=== PATIENT | male | born 1995 | race Caucasian/White ===

== ENCOUNTER 2018-11-21 01:00 | Emergency (ER) | payer OTHER ==
[2018-11-21 01:06] VITALS: BP 113/51
--- NOTE | 2018-11-21 01:17 | EDPHY ---
H & P Stated Complaint: Lac to L pointer finger on lump roller blade Time Seen by Provider: 11/21/18 01:10 HPI/ROS: Chief Complaint: Finger laceration HPI: 23-year-old male sustained a laceration to the tip of his left index finger when he was cleaning his lump roller. The blade slipped and he lacerated approximately 4 hr ago. Has continued to bleed. No other injuries. No other medical problems. He is up-to-date in his immunizations. ROS: 10 systems were reviewed and were negative except those elements noted in the HPI. PMH: Denies Social History: [No] smoking Family History: [non-contributory] Physical Exam: General: Awake alert, no acute distress Left hand: Patient has a 1 cm laceration on the pad of his left index finger. It is not involve the nail bed. There is no active bleeding. It does not cross the joint. There is no erythema. Skin: No rash - Personal History Current Tetanus Diphtheria and Acellular Pertussis (TDAP): Yes - Medical/Surgical History Hx Asthma: No Hx Chronic Respiratory Disease: No Hx Diabetes: No Hx Cardiac Disease: No Hx Renal Disease: No Hx Cirrhosis: No Hx Alcoholism: No Hx HIV/AIDS: No Hx Splenectomy or Spleen Trauma: No Other PMH: IGA nephrothpthy - Social History Smoking Status: Never smoked Constitutional: Initial Vital Signs Temperature (C) 36.8 C 11/21/18 01:04 Heart Rate 69 11/21/18 01:04 Respiratory Rate 17 11/21/18 01:04 Blood Pressure 113/51 L 11/21/18 01:04 O2 Sat (%) 95 11/21/18 01:04 O2 Delivery Mode Room Air Allergies/Adverse Reactions: No Known Allergies Allergy (Unverified 11/21/18 01:04) Home Medications: Medication Instructions Recorded LaMICtal 11/21/18 Vyvanse 11/21/18 Medical Decision Making Procedures: Procedure: Digital nerve block, indication is digit anesthesia for procedure. Patient was prepped with chlorhexidine Skin prep. 0.5% bupivacaine was infiltrated in the medial in lateral aspects with a dorsal approach at the base of the proximal phalanx with blockage of both dorsal and volar nerves. Total of 1 mL was infiltrated. There were no complications. Procedure was performed by myself. Procedure: Laceration repair. Verbal consent was obtained from the patient. The 1 cm laceration on the left index finger was anesthetized with a digital nerve block. The wound was irrigated, draped and explored to its base with a gloved finger. There were no deep structures involved. No tendon injury was identified. The wound was repaired with 3, 5-0 Ethilon simple interrupted sutures. The wound repair was uncomplicated. The procedure was performed by myself. Departure - Departure Disposition: Home, Routine, Self-Care Clinical Impression: Laceration Condition: Good Instructions: Care For Your Stitches (ED), Laceration (ED) Additional Instructions: Sutures need to be removed in 10 days. You may return to the emergency department and we will perform this for you. Return sooner for increasing redness, pain, discharge from the wound, streaking up your hand, or any other concerns. Referrals: NONE *PRIMARY CARE P,. [Primary Care Provider] - As per Instructions
== END 2018-11-21 02:00 | disposition home or self-care (01) ==
PROC: 0HQGXZZ Repair Left Hand Skin, External Approach (ICD-10-PCS; principal; 2018-11-21)
DX: S61.211A Laceration without foreign body of left index finger without damage to nail, initial encounter (principal); G62.9 Polyneuropathy, unspecified; W26.8XXA Contact with other sharp object(s), not elsewhere classified, initial encounter; Y92.9 Unspecified place or not applicable; Y99.9 Unspecified external cause status; Y93.9 Activity, unspecified